=== PATIENT | female | born 1960 | race Caucasian/White ===

== ENCOUNTER → 2019-06-17 | Outpatient (REF) | payer OTHER ==
[2019-06-17 14:49] LABS: CREATININE, URINE 34.6 MG/DL; MALB URINE SIEMENS 67.3 MG/L; MAU/CREAT RATIO 194.5 MCG/MG (0.0-30.0)
== END ==
LOC: M LAB REF 13:46
PROVIDERS: ATTEND Nurse Practitioner Family
DX: E11.65 Type 2 diabetes mellitus with hyperglycemia (principal)

== ENCOUNTER → 2025-03-19 | Outpatient (CLI) | payer OTHER | LOC: M CARPUL 13:47 | PROVIDERS: ATTEND Physician Assistant | DX: I48.0 Paroxysmal atrial fibrillation (principal) ==